=== PATIENT | female | born 1990 | race Caucasian/White ===

== ENCOUNTER 2017-12-19 15:53 | Emergency (ER) | payer OTHER, MEDICAID ==
[2017-12-19 15:53] VITALS: BMI 25.9
[2017-12-19 16:13] VITALS: BP 132/83; PULSE 84; RESP 16; TEMP 97.9; O2SAT 100
--- NOTE | 2017-12-19 17:17 | ED PDOC ---
Upper Extremity Pain/Injury Time Seen by Provider: 12/19/17 16:22 Chief Complaint (Nursing): Finger,Hand,&Wrist Chief Complaint (Provider): Finger,Hand,&Wrist History Per: Patient History/Exam Limitations: no limitations Onset/Duration Of Symptoms: Days Current Symptoms Are (Timing): Still Present Additional Complaint(s): 27 year old female presents to the emergency department with a complaint of a laceration to the left second digit while working at [employer] with a pair of scissors prior to arrival. Denies numbness of decreased range of motion. Bleeding is controlled. Tetanus shot is up to date. Denies any further medical complaints. Past Medical History Reviewed: Historical Data, Nursing Documentation, Vital Signs Vital Signs: Last Vital Signs Temp 97.9 F 12/19/17 16:10 Pulse 84 12/19/17 16:10 Resp 16 12/19/17 16:10 BP 132/83 12/19/17 16:10 Pulse Ox 100 12/19/17 16:10 - Medical History PMH: No Chronic Diseases - Family History Family History: States: Unknown Family Hx - Home Medications Home Medications: Ambulatory Orders Medication Instructions Recorded Cephalexin [Keflex] 500 mg PO QID #28 capsule 11/28/15 oxyCODONE/Acetaminophen [Percocet 1 ea PO TID PRN #10 tab 11/28/15 5/325 mg Tab] - Allergies Allergies/Adverse Reactions: Allergies Allergy/AdvReac Type Severity Reaction Status Date / Time No Known Allergies Allergy Verified 11/28/15 12:16 Review of Systems ROS Statement: Except As Marked, All Systems Reviewed And Found Negative (As per HPI, otherwise negative) Skin: Positive for: Other (Laceration of the left second digit) Neurological: Negative for: Numbness (no decreased range of motion) Physical Exam - Reviewed Nursing Documentation Reviewed: Yes Vital Signs Reviewed: Yes - Physical Exam Appears: Positive for: Well, No Acute Distress Head Exam: Positive for: NORMAL INSPECTION Skin: Positive for: Normal Color, Warm, Dry Extremity: Positive for: Normal ROM (full of the left second digit), Capillary Refill (normal), Other (Superficial 1.5 cm laceration noted to the left second digit). Negative for: Tenderness, Deformity, Swelling Neurologic/Psych: Positive for: Alert, conference organizer II-XII, Oriented (x3). Negative for : Motor/Sensory Deficits - ECG O2 Sat by Pulse Oximetry: 100 (RA) Pulse Ox Interpretation: Normal Medical Decision Making Medical Decision Making: Time: 1629 Initial impression: Laceration to the left second digit Initial plan: --Laceration repair --Discharge Time: 1637 --[facility] routine Time: 1714 --Patient tolerated procedure well and is medically clear for discharge. Advised to follow up with [facility] in 1-2 days without fail. Return to the emergency room at any time for any new or worsening symptoms. Patient states she fully agrees with and understands discharge instructions. States that she agrees with the plan and disposition. Verbalized and repeated discharge instructions and plan. I have given the patient opportunity to ask any additional questions. Clinical Impression: Finger Laceration Scribe Attestation: Documented by Mary Prabhakar, acting as a scribe for Luisa Hemphill PA-C Provider Scribe Attestation: All medical record entries made by the Scribe were at my direction and personally dictated by me. I have reviewed the chart and agree that the record accurately reflects my personal performance of the history, physical exam, medical decision making, and the department course for this patient. I have also personally directed, reviewed, and agree with the discharge instructions and disposition. Disposition - Clinical Impression Clinical Impression: Finger laceration - Patient ED Disposition Is Patient to be Admitted: No Counseled Patient/Family Regarding: Diagnosis, Need For Followup - Disposition Disposition: Routine/Home Disposition Time: 16:40 Condition: STABLE Additional Instructions: Thank you for letting us take care of you today. You were treated for finger laceration. The emergency medical care you received today was directed at your acute symptoms. Return to the Emergency Department if your symptoms worsen, do not improve, or if you have any other problems. Please contact [facility] physician in 2 days for re-evaluation and follow up. Bring any paperwork you were given at discharge with you along with any medications you are taking to your follow up visit. Our treatment cannot replace ongoing medical care by a primary care provider (PCP) outside of the emergency department. Thank you for allowing the [facility] team to be part of your care today. 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 Laceration - Laceration Repair Left second digit Wound Length (In cm): 1.5 Description Of Wound: Linear Wound Examination: Irrigated With Saline Wound Closure: Skin Glue Wound Complexity: Simple (applied clean dressing)
== END 2017-12-19 17:33 | disposition home or self-care (01) ==
LOC: H.ER 15:53
DX: S61.211A Laceration without foreign body of left index finger without damage to nail, initial encounter (principal); W26.8XXA Contact with other sharp object(s), not elsewhere classified, initial encounter; Y99.0 Civilian activity done for income or pay